=== PATIENT | male | born 1970 | race Caucasian/White ===

== ENCOUNTER 2020-12-14 13:15 | Emergency (ER) | payer OTHER ==
[2020-12-14 15:03] LABS: HEMOGLOBIN 15.7 gm/dl (14.0-17.5); RED BLOOD COUNT 5.03 M/UL (4.20-5.50); WHITE BLOOD COUNT 4.9 K/UL (4.5-11.0)
[2020-12-14 15:20] LABS: BUN/CREATININE RATIO 13 (0-10)
== END 2020-12-14 17:43 | disposition home or self-care (01) ==
LOC: ER1 13:15
PROVIDERS: Emergency Medicine
DX: J06.9 Acute upper respiratory infection, unspecified (principal); R19.7 Diarrhea, unspecified; Z20.822 Contact with and (suspected) exposure to COVID-19; I10 Essential (primary) hypertension; E78.00 Pure hypercholesterolemia, unspecified
CPT/HCPCS: 0240U; 71045; 80053; 81001; 82550; 82553; 83605; 83690; 83874; 84484; 85025; 87040; 99284; J7030

== ENCOUNTER 2021-05-16 17:37 | Emergency (ER) | payer OTHER ==
[2021-05-16 19:21] LABS: HEMOGLOBIN 14.9 gm/dl (14.0-17.5); RED BLOOD COUNT 4.76 M/UL (4.20-5.50); WHITE BLOOD COUNT 8.6 K/UL (4.5-11.0)
[2021-05-16 19:32] LABS: BUN/CREATININE RATIO 23 (0-10)
== END 2021-05-16 22:01 | disposition home or self-care (01) ==
LOC: ER1 17:37
PROVIDERS: Preventive Medicine Occupational Medicine
DX: U07.1 COVID-19 (principal); E86.0 Dehydration; I10 Essential (primary) hypertension; F17.200 Nicotine dependence, unspecified, uncomplicated
CPT/HCPCS: 36600; 71045; 80053; 82550; 82553; 82803; 83605; 83690; 83874; 83880; 84484; 85025; 85652; 93005; 94664; 96374; 96375; 99285; J0696; J1100; J7030; Q9967; U0002